=== PATIENT | male | born 1970 | race American Indian/Alaskan Native ===

== ENCOUNTER 2018-07-18 09:14 | Day surgery (SDC) | payer MEDICARE, OTHER ==
[~2018-07-18 09:14] MED LIST: ANCEF/STERILE WATER 2 GM/20 ML 2 GM/20 ML SYRINGE IV NR; NACL 0.9% 1000 ML 1,000 ML IV SCH
[2018-07-18] MEDS ORDERED: NACL BACTERIOSTATIC INFILTRATI ONE (09:43)
[2018-07-18] MEDS ORDERED: ZOFRAN IV PRN (09:49)
[2018-07-18] MEDS ORDERED: DILAUDID IV PRN (09:49)
[2018-07-18] MEDS ORDERED: NACL 0.9% 1000 ML 1,000 ML IV SCH ×2 (10:00)
[2018-07-18] MEDS ORDERED: VERSED IV NR (10:00)
[2018-07-18 10:30] LABS: Hematocrit 35.5 % (35.5-45.6); Hemoglobin 11.4 gm/dl (11.8-15.2); Lymphocytes % (Auto) 12.2 % (13.4-35.0); Mean Corpuscular HGB Conc 32 % (32-34); Mean Corpuscular Hemoglobin 28 pg (28-32); Mean Corpuscular Volume 88 fl (84-94); Mean Platelet Volume 8.5 fl (6-12); Monocytes % (Auto) 8.7 % (0.0-7.3); Platelet Count 188 K/mm3 (140-440); Red Blood Count 4.05 M/mm3 (3.65-5.03); Red Cell Distribution Width 15.5 % (13.2-15.2)
[2018-07-18 10:31] LABS: Basophils % (Auto) 0.5 % (0.0-1.8); Eosinophils # (Auto) 0.4 K/mm3 (0.0-0.4); Eosinophils % (Auto) 4.3 % (0.0-4.3); Lymphocytes # (Auto) 1.1 K/mm3 (1.2-5.4); Monocytes # (Auto) 0.8 K/mm3 (0.0-0.8)
[2018-07-18 11:02] LABS: Calcium 8.5 mg/dL (8.4-10.2)
[2018-07-18] MEDS ORDERED: HEPARIN 10,000 UNITS/10 ML ONE (13:04)
[2018-07-18] MEDS ORDERED: MARCAINE 0.5% INFILTRATI ONE ×2 (13:04→13:34)
[2018-07-18] MEDS ORDERED: NACL 0.9% 500 ML 500 ML ONE (13:04)
[2018-07-18] MEDS ORDERED: DIPRIVAN 10 MG/ML IV ONE (13:21)
[2018-07-18] MEDS ORDERED: XYLOCAINE MPF 2% ONE (13:21)
[2018-07-18] MEDS ORDERED: NACL 0.9% IR ONE (13:34)
[2018-07-18] MEDS ORDERED: HEPARIN 10,000 UNITS/10 ML IV ONE (13:34)
[2018-07-18] MEDS ORDERED: SUBLIMAZE ONE (14:06)
[2018-07-18] MEDS ORDERED: DECADRON ONE (14:07)
[2018-07-18] MEDS ORDERED: RIFADIN IV ONE (14:10)
[2018-07-18] MEDS ORDERED: ZOFRAN ONE (14:11)
--- NOTE | 2018-07-18 15:19 | Anesthesia Consultation ---
Anesthesia Consult and Med Hx - Airway Anesthetic Teeth Evaluation: Good ROM Head & Neck: Adequate Mental/Hyoid Distance: Adequate Mallampati Class: Class III Intubation Access Assessment: Possibly Difficult - Pulmonary Exam CTA: Yes - Cardiac Exam Cardiac Exam: RRR - Pre-Operative Health Status ASA Pre-Surgery Classification: ASA3 Proposed Anesthetic Plan: General - Pulmonary Hx Smoking: No Hx Sleep Apnea: Yes (DX SLEEP APNEA WITH CPAP USE) - Cardiovascular System Hx Hypertension: Yes - Endocrine Hx Renal Disease: Yes Hx End Stage Renal Disease: Yes (DIALYSIS DAYS -) Hx Insulin Dependent Diabetes: No Hx Non-Insulin Dependent Diabetes: Yes - Other Systems Hx Cancer: No Hx Obesity: Yes - Additional Comments Anesthesia Medical History Comments: HTN, morbid obesity, hyperlipidemia, ESRD
--- NOTE | 2018-07-18 15:22 | Anesthesia Day of Surgery ---
Anesthesia Day of Surgery - Day of Surgery Patient Examined: Yes Patient H&P Reviewed: Yes Patient is NPO: Yes
--- NOTE | 2018-07-18 16:03 | Short Stay Summary ---
Short Stay Documentation Date of service: 07/18/18 Narrative H&P: See H&P - History H&P: obtained from office - Allergies and Medications Current Medications: Allergies No Known Allergies Allergy (Unverified 07/13/18 15:00) Home Medications Medication Instructions Recorded Confirmed Last Taken Type Aspirin 81 mg PO DAILY 07/13/18 07/13/18 07/17/18 History AtorvaSTATin 80 mg PO DAILY 07/13/18 07/13/18 07/17/18 History Clopidogrel 75 mg PO DAILY 07/13/18 07/18/18 07/18/18 06:50 History Dialyvite 800 Plus D Wafer 800 mg PO 07/13/18 Unknown History Humalog 18 units SUB-Q AC 07/13/18 07/13/18 Unknown History Lasix 80 mg PO DAILY 07/13/18 07/13/18 07/17/18 History Sensipar 609 mg PO BID 07/13/18 07/13/18 07/17/18 History Sevelamer Carbonate 800 mg PO AC 07/13/18 07/13/18 07/17/18 History Toujeo Max Solostar 30 units SUB-Q HS 07/13/18 07/13/18 07/17/18 History Velphoro 500 mg PO AC 07/13/18 07/13/18 07/17/18 History Active Medications Cefazolin Sodium (Ancef/Sterile Water 2 Gm/20 Ml) 2 gm in 20 mls @ 80 mls/hr IV PREOP NR; Protocol Stop: 07/18/18 23:59 Sodium Chloride (Nacl 0.9% 1000 Ml) 1,000 mls @ 42 mls/hr IV DIRECT CATE Last Admin: 07/18/18 09:55 Dose: 42 mls/hr Midazolam HCl (Versed) 2 mg IV PREOP NR Stop: 07/18/18 23:59 Ondansetron HCl (Zofran) 4 mg IV ONCE PRN PRN Reason: Nausea And Vomiting - Brief post op/procedure progress note Date of procedure: 07/18/18 Pre-op diagnosis: Complications of Dialysis Access Post-op diagnosis: same Procedure: Revision Of Left Arm AV Fistula with Interposition 7 mm AccuSeal Graft Anesthesia: GETA Surgeon: SCOTT MCKEON Estimated blood loss: 50-100ml Pathology: list (Left arm AVF pseudoaneurysms) Specimen disposition: to lab Condition: stable - Disposition Condition at discharge: Good Disposition: DC-01 TO HOME OR SELFCARE Short Stay Discharge Plan Activity: other (no heavy lifting with left arm) Wound: open to air, keep clean and dry, per your surgeon's advice (okay to access the left arm AV graft for dialysis beginning tomorrow 07/19/2018), other (okay to wash the wound with soap and water but do not soak in water) Follow up with: SCOTT MCKEON MD [Staff Physician] - 7 Days Prescriptions: HYDROcodone/APAP 7.5-325 [[place] 7.5/325] 1 each PO Q6HR PRN #40 tablet PRN Reason: Pain
--- NOTE | 2018-07-18 16:06 | Operative Report ---
Operative Report Operative Report: Date of Procedure: 07/18/2018 Pre-operative Diagnosis: Complications of Dialysis Access Post-operative Diagnosis: Same Procedure(s): 1. Revision Of Left Arm AV Fistula with Interposition 7 mm AccuSeal Graft With Open Thrombectomy with a 6 Dedie Surgeon: Misha Real M.D. Treasury Representative: None Anesthesia: Gen. Endotracheal Anesthesia EBL: 100 mL Counts: Correct Complications: None Condition: Stable Findings: Successful revision of left arm AV fistula with interposition graft. Palpable thrill in the graft with completion of the case. Specimen: Pseudoaneurysm from left arm AV fistula sent to pathology. Indication: The patient is a 47-year-old male with a history of end-stage renal disease who is on hemodialysis through a left arm AV fistula. He has a large pseudoaneurysm in the mid portion of his his AV fistula that is filled with thrombus and has difficulty with access. He is in need of revision of his AV fistula. He was given the risks, benefits, and alternative procedures and consented to the procedure. Description of Procedure: The patient was brought to the operating room and laid in supine position. After general endotracheal decision was achieved his left arm was prepped and draped in normal sterile fashion. An elliptical incision was then created around the area of pseudoaneurysm and the fistula which had hypertrophic scar overlying the pseudoaneurysm. A combination of cautery and sharp dissection was then used to carry the dissection down to normal portion of the fistula at both the arterial inflow as well as the venous outflow. Both portions were then dissected circumferentially and controlled with Vesseloops. I then used sharp dissection to dissect around the pseudoaneurysm was pseudoaneurysm was dissected away from the surrounding tissue the arterial inflow as well as the venous outflow was controlled with angled DeBakey clamps and the pseudoaneurysm was resected, ensuring that I beveled each and in preparation for an end-to-end anastomosis. I then used a 6 Eddie to remove thrombus from the arterial inflow that was noted on a previous ultrasound. After several passes and no further thrombus was noted a reclamped the arterial inflow with a Eddie and then used a 4-7 Accuseal Propaten graft and transected the 4 mm portion of the graft. I used a Ginny-Wick tunneler to tunnel along the lateral aspect of the incision and pulled the 7 mm portion of the graft through this tunnel. I then used 2 6-0 Prolenes, and running fashion, to create an end-to-end anastomosis between the graft and the arterial inflow of the fistula. I clamped the venous portion of the graft and released the clamp from the arterial inflow to check hemostasis at the suture line. Hemostasis was achieved with quick clot. I then pulled the graft into the tunneled and then cut the graft to length and beveled the end and then created an anterior and anastomosis between the graft and the venous outflow using 2 6-0 Prolenes, in running fashion. Prior to completing the anastomosis I flashed the arterial inflow as well as the venous outflow and then flushed the graft with heparinized saline. I completed the anastomosis and the released the clamps allowing flow through graft which had a palpable thrill. Hemostasis at the anastomosis as well as within the wound bed was achieved with a combination of cautery, quick clot, and direct pressure. Once hemostasis was achieved the wound was anesthetized with 0.5% Marcaine and then closed in 2 layers using 3-0 Vicryl in a running fashion in the deep dermal layer and a 4-0 Monocryl in running fashion and the subcuticular and then dressed with Dermabond. The patient tolerated the procedure well. All sponge, needle, and instrument counts were correct. The patient was taken to the recovery area in stable condition.
[2018-07-18 17:40] VITALS: BP 146/68
== END 2018-07-18 09:15 | disposition home or self-care (01) ==
LOC: OR 09:14
PROVIDERS: ATTEND Surgery Vascular Surgery
DX: T82.868A Thrombosis due to vascular prosthetic devices, implants and grafts, initial encounter (principal); I12.0 Hypertensive chronic kidney disease with stage 5 chronic kidney disease or end stage renal disease; N18.6 End stage renal disease; E11.22 Type 2 diabetes mellitus with diabetic chronic kidney disease; G47.30 Sleep apnea, unspecified; E78.00 Pure hypercholesterolemia, unspecified; E66.9 Obesity, unspecified; Z68.43 Body mass index [BMI] 50.0-59.9, adult; Z79.899 Other long term (current) drug therapy; Z79.82 Long term (current) use of aspirin; Z79.4 Long term (current) use of insulin; Z99.2 Dependence on renal dialysis; Z99.89 Dependence on other enabling machines and devices; Z98.890 Other specified postprocedural states; Y83.2 Surgical operation with anastomosis, bypass or graft as the cause of abnormal reaction of the patient, or of later complication, without mention of misadventure at the time of the procedure
CPT/HCPCS: 36415; 36832; 80048; 82962; 85025; 88304; C1757; C1768; J0690; J1100; J1644; J2405; J2704; J3010; J3490; J7030; J7040

== ENCOUNTER 2018-07-28 16:06 | Day surgery (SDC) | payer MEDICARE, OTHER ==
[~2018-07-28 16:06] MED LIST changes: -ANCEF/STERILE WATER 2 GM/20 ML 2 GM/20 ML SYRINGE IV NR; -NACL 0.9% 1000 ML 1,000 ML IV SCH; +NACL 0.9% 1000 ML 1,000 ML ONE
--- NOTE | 2018-07-28 16:23 | Anesthesia Day of Surgery ---
Anesthesia Day of Surgery - Day of Surgery Patient Examined: Yes Patient H&P Reviewed: Yes Patient is NPO: Yes Beta Blockers: No
--- NOTE | 2018-07-28 16:24 | Anesthesia Consultation ---
Anesthesia Consult and Med Hx - Airway Anesthetic Teeth Evaluation: Dentures (upper) Mallampati Class: Class III Intubation Access Assessment: Possibly Difficult - Pulmonary Exam CTA: Yes - Cardiac Exam Cardiac Exam: No Murmur - Pre-Operative Health Status ASA Pre-Surgery Classification: ASA4, Emergency Proposed Anesthetic Plan: General - Pulmonary Hx Smoking: No Hx Sleep Apnea: Yes (DX SLEEP APNEA WITH CPAP USE) - Cardiovascular System Hx Hypertension: Yes - Endocrine Hx Renal Disease: Yes Hx End Stage Renal Disease: Yes (DIALYSIS DAYS --) Hx Insulin Dependent Diabetes: No Hx Non-Insulin Dependent Diabetes: Yes - Other Systems Hx Cancer: No Hx Obesity: Yes
[2018-07-28] MEDS ORDERED: NEO-SYNEPHRINE NS ONE (16:26)
[2018-07-28] MEDS ORDERED: D50W (25GM) Syringe IV ONE (16:29)
[2018-07-28] MEDS ORDERED: DIPRIVAN 10 MG/ML IV ONE ×2 (16:40)
[2018-07-28 16:41] LABS: Hematocrit 31.8 % (35.5-45.6); Hemoglobin 10.4 gm/dl (11.8-15.2); Mean Corpuscular HGB Conc 33 % (32-34); Mean Corpuscular Hemoglobin 28 pg (28-32); Mean Corpuscular Volume 86 fl (84-94); Platelet Count 192 K/mm3 (140-440); Red Blood Count 3.69 M/mm3 (3.65-5.03); Red Cell Distribution Width 15.3 % (13.2-15.2)
[2018-07-28 16:42] LABS: Calcium 9.2 mg/dL (8.4-10.2)
[2018-07-28] MEDS ORDERED: XYLOCAINE MPF 2% ONE (16:42)
[2018-07-28] MEDS ORDERED: ZOFRAN ONE (16:42)
[2018-07-28] MEDS ORDERED: SUBLIMAZE ONE (16:48)
[2018-07-28] MEDS ORDERED: NACL 0.9% 1000 ML 1,000 ML IV SCH (17:00)
[2018-07-28] MEDS ORDERED: ANCEF/STERILE WATER 2 GM/20 ML IV NR (17:00)
[2018-07-28] MEDS ORDERED: PEPCID IV NR (17:00)
[2018-07-28] MEDS ORDERED: HEPARIN 10,000 UNITS/10 ML ONE (17:19)
[2018-07-28] MEDS ORDERED: RIFADIN ONE (17:20)
[2018-07-28] MEDS ORDERED: CLORPACTIN WCS-90 IR ONE (17:20)
[2018-07-28] MEDS ORDERED: NACL 0.9% 500 ML 500 ML ONE (17:20)
[2018-07-28] MEDS ORDERED: NEO SYNEPHRINE/NS Syringe(OR USE) IV ONE ×2 (17:59→18:33)
[2018-07-28] MEDS ORDERED: MARCAINE 0.5% INFILTRATI ONE (18:07)
--- NOTE | 2018-07-28 18:57 | Short Stay Summary ---
Short Stay Documentation Date of service: 07/28/18 Narrative H&P: See H&P - History H&P: obtained from office - Allergies and Medications Current Medications: Allergies No Known Allergies Allergy (Unverified 07/13/18 15:00) Home Medications Medication Instructions Recorded Confirmed Last Taken Type Aspirin 81 mg PO DAILY 07/13/18 07/28/18 07/27/18 09:00 History AtorvaSTATin 80 mg PO DAILY 07/13/18 07/28/18 07/27/18 21:00 History Clopidogrel 75 mg PO DAILY 07/13/18 07/28/18 07/27/18 09:00 History Dialyvite 800 Plus D Wafer 800 mg PO DAILY 07/13/18 07/28/18 07/27/18 09:00 History Humalog 18 units SUB-Q AC 07/13/18 07/28/18 07/27/18 17:00 History Lasix 80 mg PO DAILY 07/13/18 07/28/18 07/27/18 09:00 History Sensipar 609 mg PO BID 07/13/18 07/28/18 07/27/18 19:00 History Sevelamer Carbonate 800 mg PO AC 07/13/18 07/28/18 07/27/18 18:00 History Toujeo Max Solostar 30 units SUB-Q HS 07/13/18 07/28/18 07/27/18 21:00 History Velphoro 500 mg PO AC 07/13/18 07/28/18 07/27/18 21:00 History HYDROcodone/APAP 7.5-325 [Purchase 1 each PO Q6HR PRN #40 tablet 07/18/18 07/28/18 Unknown Rx 7.5/325] Active Medications Cefazolin Sodium (Ancef/Sterile Water 2 Gm/20 Ml) 2 gm IV PREOP NR Stop: 07/28/18 23:59 Sodium Chloride (Nacl 0.9% 1000 Ml) 1,000 mls @ 42 mls/hr IV DIRECT CATE Last Admin: 07/28/18 16:32 Dose: 42 mls/hr - Brief post op/procedure progress note Date of procedure: 07/28/18 Pre-op diagnosis: Left Arm Postoperative Hematoma Post-op diagnosis: same Procedure: Incision and Drainage of Left Arm Postoperative Hematoma Anesthesia: GETA Surgeon: SCOTT MCKEON Estimated blood loss: 50-100ml Pathology: list (Left Arm Hematoma) Specimen disposition: discarded Condition: stable - Disposition Condition at discharge: Good Disposition: DC-01 TO HOME OR SELFCARE Short Stay Discharge Plan Activity: other (No Heavy Lifting with Left Arm) Wound: change dressing (Okay to remove dressing for dialysis tomorrow but replace after dialysis. Keep arm dressed with dry dressings for 48 hours), other (Okay to use left arm for dialysis) Follow up with: SCOTT MCKEON MD [Staff Physician] - 14 Days Prescriptions: Cephalexin [Keflex] 500 mg PO BID 7 Days #14 capsule HYDROcodone/APAP 7.5-325 [[place] 7.5/325] 1 each PO Q6HR PRN #40 tablet PRN Reason: Pain
--- NOTE | 2018-07-28 18:58 | Operative Report ---
Operative Report Operative Report: Date of Procedure: 07/28/2018 Pre-operative Diagnosis: Complications of Dialysis Access Post-operative Diagnosis: Same Procedure(s): 1. Incision and Drainage of Left Arm Postoperative Hematoma Surgeon: Misha Real M.D. Chief Nursing Officer: [] Anesthesia: [] EBL: [] Counts: [] Complications: [] Condition: [] Findings: [] Specimen: [] Indication: [] Description of Procedure: []
[2018-07-28 19:18] VITALS: BP 140/82
== END 2018-07-28 16:07 | disposition home or self-care (01) ==
LOC: OR 16:06
PROVIDERS: ATTEND Surgery Vascular Surgery
DX: T85.698A Other mechanical complication of other specified internal prosthetic devices, implants and grafts, initial encounter (principal); I10 Essential (primary) hypertension; E78.00 Pure hypercholesterolemia, unspecified; I12.0 Hypertensive chronic kidney disease with stage 5 chronic kidney disease or end stage renal disease; E11.22 Type 2 diabetes mellitus with diabetic chronic kidney disease; N18.6 End stage renal disease; G47.30 Sleep apnea, unspecified; Z98.890 Other specified postprocedural states; Z99.2 Dependence on renal dialysis; Z79.899 Other long term (current) drug therapy; Z79.82 Long term (current) use of aspirin; Z86.718 Personal history of other venous thrombosis and embolism
CPT/HCPCS: 10140; 36415; 80048; 82962; 85027; J0690; J1644; J2370; J2405; J2704; J3010; J3490; J7030; J7040